=== PATIENT | male | born 1995 | race African-American/Black ===

== ENCOUNTER 2017-03-01 12:53 | Emergency (ER) | payer SELFPAY ==
[~2017-03-01] VITALS: Ht 188 cm; Wt 79.4 kg
[2017-03-01 13:17] VITALS: BP 122/68
== END 2017-03-01 14:25 | disposition home or self-care (01) ==
LOC: ER 12:57
DX: S39.012A Strain of muscle, fascia and tendon of lower back, initial encounter (principal); S16.1XXA Strain of muscle, fascia and tendon at neck level, initial encounter; F17.210 Nicotine dependence, cigarettes, uncomplicated; V43.62XA Car passenger injured in collision with other type car in traffic accident, initial encounter; Y93.89 Activity, other specified; Y92.488 Other paved roadways as the place of occurrence of the external cause
CPT/HCPCS: 99283; A4606; Z7610

== ENCOUNTER 2017-03-07 | Emergency (ER) | payer SELFPAY ==
[~2017-03-07] VITALS: Ht 188 cm; Wt 79.4 kg
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
--- NOTE | 2017-03-07 01:45 | NUR ---
REPORT GIVEN TO MIREYA MELENDEZ RN FOR NICOLLE.
--- NOTE | 2017-03-07 02:40 | NUR ---
Patient discharged to home in stable condition. Written and verbal after care instructions given. Patient verbalizes understanding of instruction. Ambulatory with a steady gait
[2017-03-07 02:42] VITALS: BP 119/78
== END 2017-03-07 02:43 | disposition home or self-care (01) ==
LOC: ER
DX: S39.012A Strain of muscle, fascia and tendon of lower back, initial encounter (principal); F17.210 Nicotine dependence, cigarettes, uncomplicated; V43.92XA Unspecified car occupant injured in collision with other type car in traffic accident, initial encounter; Y93.89 Activity, other specified; Y92.488 Other paved roadways as the place of occurrence of the external cause; Y99.8 Other external cause status
CPT/HCPCS: 72110; 99284; 99406; A4606; Z7610

== ENCOUNTER 2018-08-11 16:10 | Emergency (ER) | payer MEDICAID, OTHER ==
[~2018-08-11] VITALS: Ht 182.9 cm; Wt 72.6 kg
--- NOTE | 2018-08-11 16:32 | NUR ---
PT TO ER BED 14 ACCOMPANIED BY PARENTS, MOTHER IS CONCERN OF PT'S BEHAVIOR. NOT SLEEPING WELL AND HYPER VERBAL BUT NOT MAKING SENSE FOR THE PAST WEEK. PT C/O BEING ANXIOUS AND IS HEARING VOICES. DENIES SI/HI. VSS. AWAITING MD MANSFIELD.
--- NOTE | 2018-08-11 16:35 | NUR ---
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
[2018-08-11 16:50] LABS: BASOPHILS # (AUTO) 0.1 /CMM (0.0-0.2); BASOPHILS % (AUTO) 2.5 % (0.0-2.0); EOSINOPHILS % (AUTO) 0.3 % (0.0-6.0); HEMATOCRIT 46 % (39-51); HEMOGLOBIN 15.5 g/dL (13.5-17.5); LYMPHOCYTES # (AUTO) 1.8 /CMM (0.8-4.8); MEAN CORPUSCULAR HGB CONC 34 g/dl (31.0-36.0); MEAN CORPUSCULAR VOLUME 81 fL (80-96); MONOCYTES # (AUTO) 0.6 /CMM (0.1-1.30); MONOCYTES % (AUTO) 11.5 % (2.0-12.0); NEUTROPHILS # (AUTO) 3.1 /CMM (1.8-8.9); NEUTROPHILS % (AUTO) 53.7 % (43.0-81.0); PLATELET COUNT (AUTO) 200 /CMM (150-450); WHITE BLOOD COUNT (AUTO) 5.6 K/uL (4.3-11.0)
[2018-08-11 17:09] LABS: ALANINE AMINOTRANSFERASE 42 U/L (12-78); ALBUMIN 4.2 g/dL (3.4-5.0); ASPARTATE AMINOTRANSFERASE 27 U/L (15-37); BILIRUBIN,DIRECT 0.2 mg/dL (0.0-0.2); BILIRUBIN,TOTAL 1.3 mg/dL (0.2-1.0); CALCIUM, SERUM 9.6 mg/dL (8.5-10.1); CARBON DIOXIDE 26 mmol/L (21-32); CHLORIDE 106 mmol/L (98-107); CREATININE 1.3 mg/dL (0.6-1.3); GLUCOSE 100 mg/dL (74-106); POTASSIUM 3.6 mmol/L (3.5-5.1); SODIUM SERUM 142 mmol/L (136-145); TOTAL PROTEIN, SERUM 7.9 g/dL (6.4-8.2); UREA NITROGEN, BLOOD 14 mg/dL (7-18)
--- NOTE | 2018-08-11 17:12 | NUR ---
urine collected and sent to lab
[2018-08-11 17:26] LABS: SALICYLATE < 0.2 mg/dL (2.8-20.0)
[2018-08-11 17:36] LABS: APPEARANCE,URINE CLEAR (CLEAR); BILIRUBIN,URINE 1+ (NEGATIVE); BLOOD, URINE NEGATIVE Ery/uL (NEGATIVE); COLOR,URINE YELLOW (YELLOW); KETONES,URINE 2+ (NEGATIVE); LEUKOCYTE ESTERASE ,URINE NEGATIVE (NEGATIVE); NITRITE, URINE NEGATIVE (NEGATIVE); PROTEIN,URINE NEGATIVE (NEGATIVE); UGLUCOSE NEGATIVE (NEGATIVE); UROBILINOGEN,URINE 0.2 EU/dL (0.2)
[2018-08-11 17:47] LABS: BACTERIA,URINE Rare /HPF (None Seen); MUCUS,URINE Few /LPF (None Seen); RBC,URINE 0-2 /HPF (0-2); SQUAMOUS EPITHELIAL CELL,UR 0-2 /HPF (None Seen); WBC,URINE 0-2 /HPF (0-3)
--- NOTE | 2018-08-11 17:59 | NUR ---
CALLED [employer] PROFESSOR OF SOCIOLOGY WAS PAGED.
[2018-08-11] MEDS ORDERED: LORAZEPAM 1 MG TABLET ONE (18:15)
[2018-08-11 18:17] LABS: ACETAMINOPHEN < 2 ug/ml (10-30); ALCOHOL, BLOOD < 3 mg/dL (0-0); ALKALINE PHOSPHATASE 61 U/L (46-116)
--- NOTE | 2018-08-11 18:28 | NUR ---
CALLED [employer] 9 THRU 12 VISITING TEACHER.
[2018-08-11] MEDS ORDERED: LORAZEPAM 1 MG TABLET PO ONE (18:30)
--- NOTE | 2018-08-11 18:33 | NUR ---
CALLED DR YOUSIF, LEFT A VOICEMAIL.
[2018-08-11 19:32] VITALS: BP 126/74
== END 2018-08-11 19:35 | disposition home or self-care (01) ==
LOC: ER 16:13
DX: F41.9 Anxiety disorder, unspecified (principal); F19.10 Other psychoactive substance abuse, uncomplicated; F14.10 Cocaine abuse, uncomplicated; F17.200 Nicotine dependence, unspecified, uncomplicated
CPT/HCPCS: 36415; 80048; 80076; 80305; 80329; 81001; 85025; 99284; 99406; A4606; G0480 ×2; Z7610; 81000-TC

== ENCOUNTER 2018-10-17 20:22 | Emergency (ER) | payer SELFPAY ==
[~2018-10-17] VITALS: Ht 188 cm; Wt 77.1 kg
--- NOTE | 2018-10-17 20:45 | NUR ---
pt brought in by family, c/o depression, vs stable, placed on er bed 13 seen and eval by er kody nathan, awaiting for orders.
[2018-10-17] MEDS ORDERED: LORAZEPAM 1 MG TABLET ONE (20:59)
[2018-10-17] MEDS ORDERED: LORAZEPAM 1 MG TABLET PO ONE (21:00)
[2018-10-17 22:07] LABS: BASOPHILS % (AUTO) 0.3 % (0.0-2.0); EOSINOPHILS % (AUTO) 1.5 % (0.0-6.0); HEMATOCRIT 45 % (39-51); HEMOGLOBIN 14.9 g/dL (13.5-17.5); LYMPHOCYTES # (AUTO) 1.8 /CMM (0.8-4.8); LYMPHOCYTES % (AUTO) 32.5 % (20.0-44.0); MEAN CORPUSCULAR HGB CONC 34 g/dl (31.0-36.0); MEAN CORPUSCULAR VOLUME 82 fL (80-96); NEUTROPHILS # (AUTO) 2.6 /CMM (1.8-8.9); NEUTROPHILS % (AUTO) 47.7 % (43.0-81.0); PLATELET COUNT (AUTO) 184 /CMM (150-450); RED BLOOD CELL COUNT(AUTO) 5.46 MIL/uL (4.5-6.0); WHITE BLOOD COUNT (AUTO) 5.4 K/uL (4.3-11.0)
[2018-10-17 22:07] LABS: APPEARANCE,URINE SL CLOUDY (CLEAR); BILIRUBIN,URINE NEGATIVE (NEGATIVE); BLOOD, URINE NEGATIVE Ery/uL (NEGATIVE); COLOR,URINE YELLOW (YELLOW); KETONES,URINE 2+ (NEGATIVE); LEUKOCYTE ESTERASE ,URINE NEGATIVE (NEGATIVE); NITRITE, URINE NEGATIVE (NEGATIVE); PH,URINE 6.5 (5.0-8.0); PROTEIN,URINE NEGATIVE (NEGATIVE); UGLUCOSE NEGATIVE (NEGATIVE)
[2018-10-17 22:18] LABS: CALCIUM, SERUM 8.6 mg/dL (8.5-10.1); CARBON DIOXIDE 25 mmol/L (21-32); CHLORIDE 104 mmol/L (98-107); CREATININE 1.3 mg/dL (0.6-1.3); GLUCOSE 91 mg/dL (74-106); POTASSIUM 3.2 mmol/L (3.5-5.1); SODIUM SERUM 140 mmol/L (136-145); UREA NITROGEN, BLOOD 7 mg/dL (7-18)
[2018-10-17 22:26] LABS: BACTERIA,URINE Few /HPF (None Seen); MUCUS,URINE Few /LPF (None Seen); RBC,URINE 0-2 /HPF (0-2); SQUAMOUS EPITHELIAL CELL,UR Rare /HPF (None Seen); URINE AMORPHOUS URATE Many /HPF (None Seen)
[2018-10-17 22:40] LABS: ALANINE AMINOTRANSFERASE 32 U/L (12-78); ALBUMIN 4.2 g/dL (3.4-5.0); ALKALINE PHOSPHATASE 63 U/L (46-116); ASPARTATE AMINOTRANSFERASE 29 U/L (15-37); BILIRUBIN,DIRECT 0.2 mg/dL (0.0-0.2); BILIRUBIN,TOTAL 1.3 mg/dL (0.2-1.0); TOTAL PROTEIN, SERUM 7.9 g/dL (6.4-8.2)
[2018-10-17 22:41] LABS: ACETAMINOPHEN 0 ug/ml (10-30); ALCOHOL, BLOOD < 3 mg/dL (0-0); SALICYLATE < 0.2 mg/dL (2.8-20.0)
--- NOTE | 2018-10-17 23:55 | NUR ---
pt seen by kanu for psyhic consult for psyhic pamela.
--- NOTE | 2018-10-17 23:56 | NUR ---
Patient discharged to home in stable condition. seen by psychic cosult Art, Written and verbal after care instructions given. Patient verbalizes understanding of instruction. mother with pt at time of dc.
[2018-10-18 00:08] VITALS: BP 125/90
== END 2018-10-18 00:08 | disposition home or self-care (01) ==
LOC: ER 20:23
DX: F24 Shared psychotic disorder (principal); F32.9 Major depressive disorder, single episode, unspecified; E87.6 Hypokalemia; F20.9 Schizophrenia, unspecified; F17.200 Nicotine dependence, unspecified, uncomplicated
CPT/HCPCS: 36415; 80048-TC; 80076-TC; 80305; 81000-TC; 85025-TC; 87086-TC; G0480

== ENCOUNTER 2018-10-18 13:35 | Emergency (ER) | payer SELFPAY ==
[~2018-10-18] VITALS: Ht 182.9 cm; Wt 68.0 kg
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
--- NOTE | 2018-10-18 13:55 | NUR ---
TECH AT BEDSIDE FOR EKG
[2018-10-18] MEDS ORDERED: LORAZEPAM INJ 2 MG/ML VIAL ONE (13:57)
[2018-10-18] MEDS ORDERED: LORAZEPAM INJ 2 MG/ML VIAL IM ONE (14:00)
--- NOTE | 2018-10-18 14:23 | NUR ---
PT SHOWING ERRATIC BEHAVIOR AND RESTLESSNESS IN BED. PT ATTEMPTING TO REMOVE MEDICAL EQUIPMENT. PLACED ON 2 POINT RESTRAINT FOR SAFETY.
--- NOTE | 2018-10-18 15:30 | NUR ---
Patient is resting comfortably in bed with eyes closed. Easily aroused. VSS
--- NOTE | 2018-10-18 19:04 | NUR ---
Patient discharged to home in stable condition. Written and verbal after care instructions given. Patient verbalizes understanding of instruction. PT AMBULATORY WITH STEADY GAIT.
[2018-10-18 19:07] VITALS: BP 152/93
== END 2018-10-18 19:08 | disposition home or self-care (01) ==
LOC: ER 13:40
DX: F14.10 Cocaine abuse, uncomplicated (principal); F12.90 Cannabis use, unspecified, uncomplicated; R45.1 Restlessness and agitation; R00.0 Tachycardia, unspecified; F17.200 Nicotine dependence, unspecified, uncomplicated
CPT/HCPCS: A4606; J2060; Z7610

== ENCOUNTER 2018-10-19 11:30 | Emergency (ER) | payer MEDICAID ==
[~2018-10-19] VITALS: Ht 188 cm; Wt 73.5 kg
--- NOTE | 2018-10-19 11:40 | NUR ---
BIB [facility], PT FEELING ANXIOUS, -SI/HI. SEEN HERE YESTERDAY FOR OD ON HEROINE, NO OTHER COMPLAINTS, WILL CONTINUE TO MONITOR.
[2018-10-19] MEDS ORDERED: LORAZEPAM INJ 2 MG/ML VIAL IM ONE (12:30)
[2018-10-19] MEDS ORDERED: LORAZEPAM INJ 2 MG/ML VIAL ONE (12:37)
[2018-10-19 12:49] LABS: BASOPHILS % (AUTO) 0.8 % (0.0-2.0); EOSINOPHILS % (AUTO) 0.4 % (0.0-6.0); HEMATOCRIT 44 % (39-51); LYMPHOCYTES # (AUTO) 1.1 /CMM (0.8-4.8); LYMPHOCYTES % (AUTO) 27.9 % (20.0-44.0); MEAN CORPUSCULAR HGB CONC 34 g/dl (31.0-36.0); MEAN CORPUSCULAR VOLUME 82 fL (80-96); MONOCYTES # (AUTO) 0.8 /CMM (0.1-1.30); MONOCYTES % (AUTO) 18.8 % (2.0-12.0); NEUTROPHILS # (AUTO) 2.1 /CMM (1.8-8.9); NEUTROPHILS % (AUTO) 52.1 % (43.0-81.0); PLATELET COUNT (AUTO) 181 /CMM (150-450); RED BLOOD CELL COUNT(AUTO) 5.42 MIL/uL (4.5-6.0)
--- NOTE | 2018-10-19 12:56 | NUR ---
FAMILY AT BEDSIDE, SPOKE WITH MARION ESQUIVEL. PATIENT STILL RESTLESS. WAS JUST GIVEN ATIVAN 1MG IM. WILL CONTINUE TO MONITOR.
[2018-10-19 13:02] LABS: CALCIUM, SERUM 9.2 mg/dL (8.5-10.1); CARBON DIOXIDE 27 mmol/L (21-32); CHLORIDE 104 mmol/L (98-107); CREATININE 1.3 mg/dL (0.6-1.3); GLUCOSE 96 mg/dL (74-106); POTASSIUM 3.6 mmol/L (3.5-5.1); SODIUM SERUM 143 mmol/L (136-145); UREA NITROGEN, BLOOD 5 mg/dL (7-18)
[2018-10-19 13:07] LABS: ALANINE AMINOTRANSFERASE 36 U/L (12-78); ALBUMIN 4.2 g/dL (3.4-5.0); ALCOHOL, BLOOD < 3 mg/dL (0-0); ALKALINE PHOSPHATASE 57 U/L (46-116); ASPARTATE AMINOTRANSFERASE 36 U/L (15-37); BILIRUBIN,DIRECT 0.3 mg/dL (0.0-0.2); BILIRUBIN,TOTAL 1.5 mg/dL (0.2-1.0); TOTAL PROTEIN, SERUM 7.9 g/dL (6.4-8.2)
[2018-10-19 13:08] LABS: ACETAMINOPHEN < 2 ug/ml (10-30); SALICYLATE < 2.0 mg/dL (2.8-20.0)
[2018-10-19 13:28] LABS: LYMPHOCYTES % (MANUAL) 30 % (16-48); MONOCYTES % (MANUAL) 14 % (0-11.0); NEUTROPHILS % (MANUAL) 56 (42-76)
[2018-10-19 13:28] LABS: APPEARANCE,URINE CLEAR (CLEAR); BILIRUBIN,URINE 1+ (NEGATIVE); BLOOD, URINE NEGATIVE Ery/uL (NEGATIVE); KETONES,URINE 1+ (NEGATIVE); LEUKOCYTE ESTERASE ,URINE TRACE (NEGATIVE); NITRITE, URINE NEGATIVE (NEGATIVE); PROTEIN,URINE 1+ mg/dl (NEGATIVE); UGLUCOSE NEGATIVE (NEGATIVE); UROBILINOGEN,URINE 0.2 EU/dL (0.2)
[2018-10-19 13:29] LABS: COLOR,URINE DARK YELLOW (YELLOW)
[2018-10-19 13:32] LABS: BACTERIA,URINE Few /HPF (None Seen); MUCUS,URINE Many /LPF (None Seen); RBC,URINE 0-2 /HPF (0-2); SQUAMOUS EPITHELIAL CELL,UR Few /HPF (None Seen); WBC,URINE 21-50 /HPF (0-3)
[2018-10-19] MEDS ORDERED: CEPHALEXIN MONOHYDRATE 500 MG CAPSULE PO ONE ×2 (14:25→14:30)
--- NOTE | 2018-10-19 16:18 | NUR ---
[facility] TRANSP[facility] TO [facility] ETA 1748 TRIP#[id number]
--- NOTE | 2018-10-19 16:19 | NUR ---
CALLED [facility], GAVE REPORT TO ZANA. [phone] EXT [phone].
[2018-10-19 16:53] VITALS: BP 149/94
--- NOTE | 2018-10-19 18:00 | NUR ---
PATIENT A/OX2-3, BREATHING EVEN AND UNLABORED, NO SOB NOTED, PATIENT STILL NOTED RESTLESS, AMBULANCE CAME AND REPORT GIVEN, VSS, PAPERWORKS SIGNED, TRANSFERRED TO [facility] IN STABLE CONDITION.
== END 2018-10-19 18:05 ==
LOC: ER 11:38
DX: R45.851 Suicidal ideations (principal); F19.10 Other psychoactive substance abuse, uncomplicated; N39.0 Urinary tract infection, site not specified; F14.10 Cocaine abuse, uncomplicated; F10.10 Alcohol abuse, uncomplicated; F17.200 Nicotine dependence, unspecified, uncomplicated; R45.1 Restlessness and agitation; F12.10 Cannabis abuse, uncomplicated; Y90.0 Blood alcohol level of less than 20 mg/100 ml
CPT/HCPCS: 36415; 80048; 80076; 80305; 80329; 81001; 85025; 87086; 96372; 99285; A4606; G0480 ×2; J2060; Z7610; 81000-TC

== ENCOUNTER 2018-10-19 18:44 | Emergency (ER) | payer MEDICAID ==
[~2018-10-19] VITALS: Ht 188 cm; Wt 73.5 kg
--- NOTE | 2018-10-19 18:58 | NUR ---
RECEIVED REPORT FROM [facility], JAMEEL WILLIAM REFUSED TO ACCEPT PATIENT UNTIL HEAD CT IS COMPLETED. PATIENT WAS SENT BACK. PATIENT FINALLY AGREED TO HAVE CT SCAN. Addendum: 10/19/18 at 1859 by ROALCANCES ADDENDUM: PATIENT WAS SEEN IN ER EARLIER DUE TO ANXIETY AND BIZAARE BEHAVIOR. REFUSED CT SCAN. ALEX WANG.
--- NOTE | 2018-10-19 19:15 | NUR ---
ENDORSED TO JARETT BUITRAGO FOR NICOLLE.
--- NOTE | 2018-10-19 19:28 | NUR ---
REC'D REPORT FROM MINNA VALIENTE FOR NICOLLE
--- NOTE | 2018-10-19 19:31 | NUR ---
CALLED [facility] TRANSPORT TO [facility] ETA 2100 TRIP#[id number]
--- NOTE | 2018-10-19 19:54 | NUR ---
INFORMED PT AND FATHER OF TRANSPORT ETA. PROVIDED JUICE. VSS
--- NOTE | 2018-10-19 21:13 | NUR ---
REPORT GIVEN TO RADHA EMT. Patient TRANSFERRED TO [facility] in stable condition. Written and verbal after care instructions given. Patient verbalizes understanding of instruction.
[2018-10-19 21:16] VITALS: BP 140/78
== END 2018-10-19 21:16 ==
LOC: ER 18:46
DX: Z04.6 Encounter for general psychiatric examination, requested by authority (principal); F19.10 Other psychoactive substance abuse, uncomplicated; F10.10 Alcohol abuse, uncomplicated; F17.200 Nicotine dependence, unspecified, uncomplicated; R41.82 Altered mental status, unspecified; Y90.9 Presence of alcohol in blood, level not specified
CPT/HCPCS: 70450; 99285; A4606; Z7610